=== PATIENT | female | born 1985 | race Caucasian/White ===

== ENCOUNTER → 2018-02-04 | Outpatient (CLI) | payer BC, OTHER ==
[~2018-02-04] MED LIST: BENTYL 20 MG TA20 M1 PO; METHYLPHENIDATE20 MG PO; PHENERGAN 25 MG25 M1 PO; WELLBUTRIN 100100 MG PO
== END ==
LOC: RAD 13:42
DX: J40 Bronchitis, not specified as acute or chronic (principal)